=== PATIENT | male | born 1955 | race Caucasian/White ===

== ENCOUNTER 2018-08-30 19:21 | Emergency (ER) | payer BC ==
[2018-08-30] MEDS ORDERED: Ondansetron 4 MG/2 ML SDV IVPUSH ONE (19:43)
[2018-08-30] MEDS ORDERED: Ketorolac 30 MG/ML SDV IVPUSH ONE (19:43)
[2018-08-30] MEDS ORDERED: Sodium Chloride 0.9% 10 ML Syringe FLUSH PRN (19:43)
[2018-08-30] MEDS ORDERED: Sodium Chloride 0.9% 1,000 ML IV SCH ×2 (19:45→21:15)
--- NOTE | 2018-08-30 19:59 | EDM.PDOC ---
ED HPI GENERAL MEDICAL PROBLEM - General Chief Complaint: Chest Pain Stated Complaint: CHEST PAIN,BACK PAIN Time Seen by Provider: 08/30/18 19:58 Source of Information: Reports: Patient, Family History Limitations: Reports: No Limitations - History of Present Illness INITIAL COMMENTS - FREE TEXT/NARRATIVE: Mr. Dickens complains of low back pain started today. He reports severe pain gets up to the upper abdominal areas both sides causing him to vomit. No shortness of breath or chest pain.Perviously healthy with the exception of HTN and HLD,hitherto stable. upper abd DENISE and mid abd Pain Score (Numeric/FACES): 6 - Related Data Allergies Allergy/AdvReac Type Severity Reaction Status Date / Time meperidine [From Demerol] Allergy Hives Verified 08/30/18 20:30 Home Meds: Home Meds Fenofibric Acid (Choline) [Fenofibric Acid] 135 mg PO DAILY 08/30/18 [History] Moexipril HCl [Moexipril] 15 mg PO DAILY 08/30/18 [History] ED ROS GENERAL - Review of Systems Review Of Systems: ROS reveals no pertinent complaints other than HPI. ED EXAM, GENERAL - Physical Exam Exam: See Below Exam Limited By: No Limitations General Appearance: Alert, Other (pale,sweaty/clammy) Ears: Normal External Exam Ear Exam: Bilateral Ear: Auricle Normal, Canal Normal, TM normal Cardiovascular: Normal Peripheral Pulses GI/Abdominal: Normal Bowel Sounds, Non-Tender, No Mass, Distended, Guarding, Tender. No: Rigid Back Exam: Normal Inspection, Vertebral Tenderness Extremities: Normal Inspection Course - Vital Signs Last Recorded V/S: Last Vital Signs Temp 98.7 F 08/30/18 22:53 Pulse 73 08/30/18 22:53 Resp 14 08/30/18 22:53 BP 153/82 H 08/30/18 22:53 Pulse Ox 100 08/30/18 22:53 - Orders/Labs/Meds Orders: Active Orders 24 hr Category Date Time Status EKG Documentation Completion [RC] ASDIRECTED Care 08/30/18 19:43 Active Abdomen Pelvis w Cont [CT] Stat Exams 08/30/18 20:22 Taken Chest 2V [CR] Stat Exams 08/30/18 20:22 Taken Peripheral IV Insertion Adult [OM.PC] Routine Oth 08/30/18 19:43 Ordered EKG 12 Lead [EK] Routine Ther 08/30/18 19:43 Ordered Labs: Laboratory Tests 08/30/18 08/30/18 08/30/18 Range/Units 19:45 19:55 19:55 WBC 12.3 H (4.5-12.0) X10-3/uL RBC 4.87 (4.30-5.75) x10(6)uL Hgb 15.6 (13.5-17.8) g/dL Hct 45.6 (30.0-51.3) % MCV 93.5 (80-96) fL MCH 32.0 (27.7-33.6) pg MCHC 34.2 (32.2-35.4) g/dL RDW 12.1 (11.5-15.5) % Plt Count 383 H (125-369) X10(3)uL MPV 7.7 (7.4-10.4) fL Neut % (Auto) 73.2 (46-82) % Lymph % (Auto) 18.1 (13-37) % [place] % (Auto) 8.0 (4-12) % Eos % (Auto) 0 L (1.0-5.0) % Baso % (Auto) 1 (0-2) % Neut # (Auto) 8.9 H (1.6-8.3) # Lymph # (Auto) 2.2 (0.6-5.0) # [place] # (Auto) 1.0 (0.0-1.3) # Eos # (Auto) 0.0 (0.0-0.8) # Baso # (Auto) 0.1 (0.0-0.2) # Sodium 135 (135-145) mmol/L Potassium 3.4 L (3.5-5.3) mmol/L Chloride 95 L (100-110) mmol/L Carbon Dioxide 23 (21-32) mmol/L BUN 12 (7-18) mg/dL Creatinine 0.8 (0.70-1.30) mg/dL Est Cr Clr Drug Dosing TNP Estimated GFR (MDRD) > 60 (>60) BUN/Creatinine Ratio 15.0 (9-20) Glucose 109 (80-116) mg/dL Lactic Acid (0.4-2.2) mmol/L Calcium 9.4 (8.6-10.2) mg/dL Total Bilirubin 0.5 (0.1-1.3) mg/dL AST 22 (5-25) IU/L ALT 17 (12-36) U/L Alkaline Phosphatase 65 (56-112) IU/L Troponin I (<0.017-0.056) ng/mL C-Reactive Protein (0.5-0.9) mg/dL Total Protein 7.2 (6.0-8.0) g/dL Albumin 3.6 (3.2-4.6) g/dL Globulin 3.6 g/dL Albumin/Globulin Ratio 1.0 Amylase (25-115) U/L Urine Color Yellow (YELLOW) Urine Appearance Clear (CLEAR) Urine pH 6.0 (5.0-6.5) Ur Specific Harrison 1.015 (1.010-1.025) Urine Protein Negative (NEGATIVE) mg/dL Urine Glucose (UA) Normal (NORMAL) mg/dL Urine Ketones Negative (NEGATIVE) mg/dL Urine Occult Blood Negative (NEGATIVE) Urine Nitrite Negative (NEGATIVE) Urine Bilirubin Negative (NEGATIVE) Urine Urobilinogen Normal (NEGATIVE) mg/dL Ur Leukocyte Esterase Negative (NEGATIVE) Urine RBC 0-5 (0-5) Urine WBC 0-5 (0-5) Ur Squamous Epith Cells Occasional (NS,R,O) Urine Bacteria Rare H (NS) 08/30/18 08/30/18 08/30/18 Range/Units 19:55 19:55 19:55 WBC (4.5-12.0) X10-3/uL RBC (4.30-5.75) x10(6)uL Hgb (13.5-17.8) g/dL Hct (30.0-51.3) % MCV (80-96) fL MCH (27.7-33.6) pg MCHC (32.2-35.4) g/dL RDW (11.5-15.5) % Plt Count (125-369) X10(3)uL MPV (7.4-10.4) fL Neut % (Auto) (46-82) % Lymph % (Auto) (13-37) % [place] % (Auto) (4-12) % Eos % (Auto) (1.0-5.0) % Baso % (Auto) (0-2) % Neut # (Auto) (1.6-8.3) # Lymph # (Auto) (0.6-5.0) # [place] # (Auto) (0.0-1.3) # Eos # (Auto) (0.0-0.8) # Baso # (Auto) (0.0-0.2) # Sodium (135-145) mmol/L Potassium (3.5-5.3) mmol/L Chloride (100-110) mmol/L Carbon Dioxide (21-32) mmol/L BUN (7-18) mg/dL Creatinine (0.70-1.30) mg/dL Est Cr Clr Drug Dosing Estimated GFR (MDRD) (>60) BUN/Creatinine Ratio (9-20) Glucose (80-116) mg/dL Lactic Acid 2.6 H (0.4-2.2) mmol/L Calcium (8.6-10.2) mg/dL Total Bilirubin (0.1-1.3) mg/dL AST (5-25) IU/L ALT (12-36) U/L Alkaline Phosphatase (56-112) IU/L Troponin I < 0.017 L (<0.017-0.056) ng/mL C-Reactive Protein (0.5-0.9) mg/dL Total Protein (6.0-8.0) g/dL Albumin (3.2-4.6) g/dL Globulin g/dL Albumin/Globulin Ratio Amylase 34 (25-115) U/L Urine Color (YELLOW) Urine Appearance (CLEAR) Urine pH (5.0-6.5) Ur Specific Harrison (1.010-1.025) Urine Protein (NEGATIVE) mg/dL Urine Glucose (UA) (NORMAL) mg/dL Urine Ketones (NEGATIVE) mg/dL Urine Occult Blood (NEGATIVE) Urine Nitrite (NEGATIVE) Urine Bilirubin (NEGATIVE) Urine Urobilinogen (NEGATIVE) mg/dL Ur Leukocyte Esterase (NEGATIVE) Urine RBC (0-5) Urine WBC (0-5) Ur Squamous Epith Cells (NS,R,O) Urine Bacteria (NS) 08/30/18 Range/Units 19:55 WBC (4.5-12.0) X10-3/uL RBC (4.30-5.75) x10(6)uL Hgb (13.5-17.8) g/dL Hct (30.0-51.3) % MCV (80-96) fL MCH (27.7-33.6) pg MCHC (32.2-35.4) g/dL RDW (11.5-15.5) % Plt Count (125-369) X10(3)uL MPV (7.4-10.4) fL Neut % (Auto) (46-82) % Lymph % (Auto) (13-37) % [place] % (Auto) (4-12) % Eos % (Auto) (1.0-5.0) % Baso % (Auto) (0-2) % Neut # (Auto) (1.6-8.3) # Lymph # (Auto) (0.6-5.0) # [place] # (Auto) (0.0-1.3) # Eos # (Auto) (0.0-0.8) # Baso # (Auto) (0.0-0.2) # Sodium (135-145) mmol/L Potassium (3.5-5.3) mmol/L Chloride (100-110) mmol/L Carbon Dioxide (21-32) mmol/L BUN (7-18) mg/dL Creatinine (0.70-1.30) mg/dL Est Cr Clr Drug Dosing Estimated GFR (MDRD) (>60) BUN/Creatinine Ratio (9-20) Glucose (80-116) mg/dL Lactic Acid (0.4-2.2) mmol/L Calcium (8.6-10.2) mg/dL Total Bilirubin (0.1-1.3) mg/dL AST (5-25) IU/L ALT (12-36) U/L Alkaline Phosphatase (56-112) IU/L Troponin I (<0.017-0.056) ng/mL C-Reactive Protein < 0.2 L (0.5-0.9) mg/dL Total Protein (6.0-8.0) g/dL Albumin (3.2-4.6) g/dL Globulin g/dL Albumin/Globulin Ratio Amylase (25-115) U/L Urine Color (YELLOW) Urine Appearance (CLEAR) Urine pH (5.0-6.5) Ur Specific [place] (1.010-1.025) Urine Protein (NEGATIVE) mg/dL Urine Glucose (UA) (NORMAL) mg/dL Urine Ketones (NEGATIVE) mg/dL Urine Occult Blood (NEGATIVE) Urine Nitrite (NEGATIVE) Urine Bilirubin (NEGATIVE) Urine Urobilinogen (NEGATIVE) mg/dL Ur Leukocyte Esterase (NEGATIVE) Urine RBC (0-5) Urine WBC (0-5) Ur Squamous Epith Cells (NS,R,O) Urine Bacteria (NS) Meds: Medications Discontinued Medications Generic Name Dose Route Start Last Admin Trade Name Freq PRN Reason Stop Dose Admin Hydromorphone HCl 2 mg 08/30/18 20:22 08/30/18 20:26 Dilaudid IVPUSH 08/30/18 20:23 2 mg ONETIME ONE Administration Hydromorphone HCl 2 mg 08/30/18 22:34 08/30/18 22:37 Dilaudid IVPUSH 08/30/18 22:35 2 mg ONETIME ONE Administration Sodium Chloride 1,000 mls @ 999 mls/hr 08/30/18 19:45 08/30/18 20:00 Normal Saline IV 999 mls/hr ASDIRECTED KRISTINE Administration Sodium Chloride 1,000 mls @ 125 mls/hr 08/30/18 21:15 08/30/18 21:07 Normal Saline IV 125 mls/hr ASDIRECTED KRISTINE Administration Iopamidol 100 ml 08/30/18 20:25 08/30/18 20:50 Isovue-370 (76%) IV 08/30/18 20:26 100 ml . DIRECTED ONE Administration Ketorolac Tromethamine 30 mg 08/30/18 19:43 08/30/18 20:01 Toradol IVPUSH 08/30/18 19:44 30 mg ONETIME ONE Administration Ondansetron HCl 8 mg 08/30/18 19:43 08/30/18 20:01 Zofran IVPUSH 08/30/18 19:44 8 mg ONETIME ONE Administration Sodium Chloride 10 ml 08/30/18 19:43 08/30/18 20:00 Saline Flush FLUSH 10 ml ASDIRECTED PRN Administration Keep Vein Open Departure - Departure Time of Disposition: 21:55 Disposition: Home, Self-Care 01 Condition: Good Clinical Impression: Acute pancreatitis, HTN (hypertension), Pancreatic mass Instructions: Acute Pancreatitis, [id number] Referrals: Urbano Perales MD [Primary Care Provider] - Forms: ED Department Discharge Additional Instructions: will transfer you to [facility] under Dr. Fregoso. r# [phone] - Problem List & Annotations (1) Acute pancreatitis SNOMED Code(s): 158959888 Code(s): K85.90 - ACUTE PANCREATITIS WITHOUT NECROSIS OR INFECTION, UNSP Status: Acute (2) Pancreatic mass Status: Acute (3) HTN (hypertension) SNOMED Code(s): 29699284 Code(s): I10 - ESSENTIAL (PRIMARY) HYPERTENSION Status: Acute (4) HLD (hyperlipidemia) SNOMED Code(s): 62895362 Code(s): E78.5 - HYPERLIPIDEMIA, UNSPECIFIED Status: Acute Qualifiers: Hyperlipidemia type: unspecified Qualified Code(s): E78.5 - Hyperlipidemia , unspecified - Problem List Review Problem List Initiated/Reviewed/Updated: Yes - My Orders Last 24 Hours: My Active Orders 08/30/18 19:43 EKG Documentation Completion [RC] ASDIRECTED Peripheral IV Insertion Adult [OM.PC] Routine EKG 12 Lead [EK] Routine 08/30/18 20:22 Abdomen Pelvis w Cont [CT] Stat Chest 2V [CR] Stat - Assessment/Plan Last 24 Hours: My Active Orders 08/30/18 19:43 EKG Documentation Completion [RC] ASDIRECTED Peripheral IV Insertion Adult [OM.PC] Routine EKG 12 Lead [EK] Routine 08/30/18 20:22 Abdomen Pelvis w Cont [CT] Stat Chest 2V [CR] Stat Plan: 1L NS bolus. IV Dilaudid and Zofran. CT showed mass at the head of pancreas, possibly w/mets,some pancreatitis.Will transfer to [place]
[2018-08-30] MEDS ORDERED: HYDROmorphone 2 MG/ML SDV IVPUSH ONE ×2 (20:22→22:34)
[2018-08-30] MEDS ORDERED: Iopamidol 755 Mg/ML 100 ML Bottle IV ONE (20:25)
== END 2018-08-30 22:53 | disposition critical access hospital (66) ==
LOC: FB.ED 19:21
DX: K85.90 Acute pancreatitis without necrosis or infection, unspecified (principal); I10 Essential (primary) hypertension; K86.89 Other specified diseases of pancreas; Z88.8 Allergy status to other drugs, medicaments and biological substances; Z79.899 Other long term (current) drug therapy
CPT/HCPCS: 36415; 71046; 74177; 80053; 81001; 82150; 83605; 84484; 85025; 86140; 93005; 96361; 96374; 96375; 96376; 99285; J1170; J1885; J2405; J7030; Q9967

== ENCOUNTER 2020-03-02 06:00 | Emergency (ER) | payer OTHER, BC ==
--- NOTE | 2020-03-02 07:23 | EDM.PDOC ---
ED HPI GENERAL MEDICAL PROBLEM - General Chief Complaint: Upper Extremity Injury/Pain Stated Complaint: WORK INJURY Time Seen by Provider: 03/02/20 07:05 Source of Information: Reports: Patient History Limitations: Reports: No Limitations - History of Present Illness INITIAL COMMENTS - FREE TEXT/NARRATIVE: Patient presented to the ED because of a clavicular pain. He tripped and fell and landed on his rt shoulder. - Related Data Allergies Allergy/AdvReac Type Severity Reaction Status Date / Time meperidine [From Demerol] Allergy Hives Verified 03/02/20 07:03 Home Meds: Home Meds Fenofibric Acid (Choline) [Fenofibric Acid] 135 mg PO DAILY 08/30/18 [History] Moexipril HCl [Moexipril] 15 mg PO DAILY 08/30/18 [History] Past Medical History Cardiovascular History: Reports: High Cholesterol, Hypertension Social & Family History - Family History Family Medical History: Noncontributory - Caffeine Use Caffeine Use: Reports: Coffee Review of Systems - Review of Systems Review Of Systems: See Below Constitutional: Reports: No Symptoms Eyes: Reports: No Symptoms Ears: Reports: No Symptoms Nose: Reports: No Symptoms Mouth/Throat: Reports: No Symptoms Respiratory: Reports: No Symptoms Cardiovascular: Reports: No Symptoms GI/Abdominal: Reports: No Symptoms Genitourinary: Reports: No Symptoms Musculoskeletal: Reports: Other (riight clavicle pain) Skin: Reports: No Symptoms ED EXAM, GENERAL - Physical Exam Exam: See Below Exam Limited By: No Limitations General Appearance: Alert, No Apparent Distress Eye Exam: Bilateral Eye: PERRL Ears: Normal External Exam, Normal Canal, Hearing Grossly Normal Nose: Normal Inspection, Normal Mucosa, No Blood Throat/Mouth: Normal Inspection, Normal Lips, Normal Teeth, Normal Gums Head: Atraumatic, Normocephalic Neck: Normal Inspection, Supple, Non-Tender, Full Range of Motion Respiratory/Chest: No Respiratory Distress, Lungs Clear, Normal Breath Sounds Cardiovascular: Normal Peripheral Pulses, Regular Rate, Rhythm, No Edema, No Gallop, No JVD, No Murmur, No Rub GI/Abdominal: Normal Bowel Sounds, Soft, Non-Tender, No Organomegaly Back Exam: Normal Inspection, Full Range of Motion Extremities: Normal Inspection, Other (Tenderness R clavicle) Course - Vital Signs Text/Narrative:: xray rt clavicle-see result - Orders/Labs/Meds Orders: Active Orders 24 hr Category Date Time Status Clavicle Rt [CR] Stat Exams 03/02/20 07:05 Ordered Departure - Departure Time of Disposition: 07:30 Disposition: Home, Self-Care 01 Condition: Good Clinical Impression: Clavicle fracture - Discharge Information Instructions: Clavicle Fracture, [id number] Additional Instructions: Please read discharge instructions on clavicle fracture you may take ibuprofen 600 mg with tylenol 500 mg every 4-6 hours as needed for pain Follow up with your doctor in 1-2 weeks - My Orders Last 24 Hours: My Active Orders 03/02/20 07:05 Clavicle Rt [CR] Stat - Assessment/Plan Last 24 Hours: My Active Orders 03/02/20 07:05 Clavicle Rt [CR] Stat
--- NOTE | 2020-03-02 11:08 | CR ---
INDICATION: Fall, pain near sternum. RIGHT CLAVICLE: Three views of the right clavicle were obtained 03/02/20 and compared with a chest x-ray from 08/30/18. A bony density adjacent to the cranial aspect of the distal clavicular metaphysis is again noted, most likely representing a chip fracture fragment that did not unite from previous injury, or possibly dystrophic soft tissue calcification from previous injury. There is evidence of previous injury at the AC joint with marked separation of the AC joint compatible with a significant degree of AC joint strain. Hypertrophic degenerative changes are also noted at the AC joint of moderate degree. At the proximal metaphysis of the clavicle, there is the appearance suggesting a fracture site which is not well defined, but appears to be new compared with the previous chest x-ray from 08/30/18. There is an old healed fracture of the third right rib posteriorly which is again present. IMPRESSION: ; 1. There appears to be a possibly comminuted fracture with some cranial offset of the proximal fracture fragment of the proximal metaphysis of the clavicle. This appears to be producing moderate deformity and is new compared with a previous chest x-ray. 2. 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 Also associated is a calcific or bony density along the cranial aspect of the distal clavicle which may be on the basis of probable previous trauma. MTDD
== END 2020-03-02 07:50 | disposition home or self-care (01) ==
LOC: FB.ED 06:00
DX: S42.001A Fracture of unspecified part of right clavicle, initial encounter for closed fracture (principal); E78.00 Pure hypercholesterolemia, unspecified; I10 Essential (primary) hypertension; Z79.899 Other long term (current) drug therapy; Z88.5 Allergy status to narcotic agent; W01.0XXA Fall on same level from slipping, tripping and stumbling without subsequent striking against object, initial encounter
CPT/HCPCS: 73000-RT; 99282; 99283-25